=== PATIENT | male | born 1985 | race Caucasian/White ===

== ENCOUNTER 2020-06-26 00:40 | Emergency (ER) | payer BC ==
[~2020-06-26] VITALS: Ht 170.2 cm; Wt 83.8 kg
[2020-06-26 00:47] VITALS: BP 141/93
== END 2020-06-26 02:30 | disposition left against medical advice (07) ==
LOC: ER 01:39
DX: Z53.21 Procedure and treatment not carried out due to patient leaving prior to being seen by health care provider (principal)
CPT/HCPCS: 93005